=== PATIENT | male | born 1990 | race Caucasian/White ===

== ENCOUNTER 2017-12-04 17:36 | Inpatient (IN) | payer BC, OTHER ==
[2017-12-05] MEDS ORDERED: CLONIDINE HCL 0.1 MG TABLET PO PRN (18:00)
[2017-12-05] MEDS ORDERED: ONDANSETRON 4 MG/2 ML VIAL IM PRN (18:00)
[2017-12-05] MEDS ORDERED: IBUPROFEN 600 MG TABLET PO PRN (18:00)
[2017-12-05] MEDS ORDERED: MAG HYDROX/AL HYDROX/SIMETH 30 ML LIQUID UDC PO PRN (18:00)
[2017-12-05] MEDS ORDERED: NICOTINE POLACRILEX 4 MG GUM-PK OF TEN BC PRN (18:00)
[2017-12-05] MEDS ORDERED: NICOTINE 14 MG/24HR PATCH TD PRN (18:00)
[2017-12-05] MEDS ORDERED: DICYCLOMINE HCL 20 MG TABLET PO PRN (18:00)
[2017-12-05] MEDS ORDERED: BUPRENORPHINE HCL 2 MG TAB.SUBL SL PRN (18:00)
[2017-12-05] MEDS ORDERED: MIRALAX 17 GM POWD.PACK PO PRN (18:00)
[2017-12-05] MEDS ORDERED: ONDANSETRON ODT 4 MG TAB.RAPDIS SL PRN (18:00)
[2017-12-05] MEDS ORDERED: ACETAMINOPHEN 325 MG TABLET PO PRN (18:00)
[2017-12-05] MEDS ORDERED: METHOCARBAMOL 750 MG TABLET PO PRN (18:00)
[2017-12-05] MEDS ORDERED: diphenhydrAMINE 50 MG CAPSULE PO PRN (18:00)
[2017-12-05] MEDS ORDERED: LORAZEPAM 2 MG/1 ML VIAL IM PRN (18:00)
[2017-12-05] MEDS ORDERED: LOPERAMIDE HCL 2 MG CAPSULE PO PRN ×2 (18:00)
[2017-12-05] MEDS ORDERED: MAGNESIUM HYDROXIDE 30 ML LIQUID UDC PO PRN (18:00)
[2017-12-05] MEDS ORDERED: LORAZEPAM 1 MG TABLET PO PRN ×2 (18:00)
--- NOTE | 2017-12-05 18:35 | NUR ---
INTAKE ASSESSMENT Received patient in intake. He is AOX4, stable, and ambulatory. Vital signs WNL. NKA. patient reported PMH of anxiety, no history of seizure. Vital signs B/P-118/67, HR-91,RR-18, SPO2-97%,Temp-97.8, Pain-0/10. Patient did not bring any medications with him from home. Explained unit protocols and patient verbalized understanding. Will admit patient upon admission to third floor.
--- NOTE | 2017-12-05 18:40 | NUR ---
AMA NOTE Pt left AMA, Pt refused to comply with treatment plan. Pt educated about the risks and consequences of leaving AMA, pt verbalized understanding but was adamant about leaving. Multiple staff members, patient advocates and nurses attempted to reason with the pt without any success. VS WNL. Pt denies any suicidal or homicidal ideations. made aware. Pt refused to take list of community resources, AMA forms explained and signed. All belongings returned to Pt. Pt left facility AMA on 12/04/17 at 1840.
[2017-12-05] MEDS ORDERED: THIAMINE HCL 200 MG/2 ML VIAL IM ONE (19:00)
[2017-12-05] MEDS ORDERED: LORAZEPAM 1 MG TABLET PO SCH (21:00)
[2017-12-05] MEDS ORDERED: GABAPENTIN 300 MG CAPSULE PO SCH (21:00)
[2017-12-06] MEDS ORDERED: LORAZEPAM 1 MG TABLET PO SCH (09:00)
[2017-12-06] MEDS ORDERED: TUBERCULIN,PURIF.PROT.DERIV. 5 TU/0.1 ML TEST ID ONE (09:00)
[2017-12-06] MEDS ORDERED: MULTIVITAMINS,THERAPEUTIC TABLET PO SCH (09:00)
[2017-12-06] MEDS ORDERED: FOLIC ACID 1 MG TABLET PO SCH (09:00)
[2017-12-06] MEDS ORDERED: THIAMINE HCL 100 MG TABLET PO SCH (09:00)
[2017-12-06] MEDS ORDERED: BUPRENORPHINE HCL 2 MG TAB.SUBL SL SCH (09:00)
[2017-12-07] MEDS ORDERED: BUPRENORPHINE HCL 2 MG TAB.SUBL SL SCH ×2 (09:00→15:00)
[2017-12-07] MEDS ORDERED: LORAZEPAM 1 MG TABLET PO SCH (09:00)
[2017-12-08] MEDS ORDERED: LORAZEPAM 1 MG TABLET PO SCH (09:00)
[2017-12-08] MEDS ORDERED: BUPRENORPHINE HCL 2 MG TAB.SUBL SL SCH (09:00)
[2017-12-09] MEDS ORDERED: BUPRENORPHINE HCL 2 MG TAB.SUBL SL SCH (09:00)
[2017-12-09] MEDS ORDERED: LORAZEPAM 1 MG TABLET PO SCH (09:00)
== END 2017-12-05 21:00 | disposition left against medical advice (07) | DRG 894 ==
LOC: SRC 12-05 17:06
PROVIDERS: ADMIT Internal Medicine; ATTEND Internal Medicine
PROC: HZ2ZZZZ Detoxification Services for Substance Abuse Treatment (ICD-10-PCS; principal; 2017-12-05)
DX: F11.229 Opioid dependence with intoxication, unspecified (principal); F10.239 Alcohol dependence with withdrawal, unspecified; F15.10 Other stimulant abuse, uncomplicated; Y90.9 Presence of alcohol in blood, level not specified; F12.20 Cannabis dependence, uncomplicated; F41.9 Anxiety disorder, unspecified; Z59.1 Inadequate housing; Z91.89 Other specified personal risk factors, not elsewhere classified; F17.290 Nicotine dependence, other tobacco product, uncomplicated